=== PATIENT | female | born 1995 | race Caucasian/White ===

== ENCOUNTER 2016-06-28 18:50 | Inpatient (IN) | payer MEDICAID ==
[~2016-06-28] VITALS: Ht 152.4 cm; Wt 90.8 kg
--- NOTE | 2016-06-28 19:28 | NUR ---
PT CAME TO THE ED TODAY WITH CO MID ABD PAIN SINCE HAVING HER BABY IN LATE JANUARY. PT STATES PAIN COMES AND GOES AND CHANGES FROM SHARP TO BURNING SENSATION. PT STATES SHE WENT TO HER PMD 6 WKS AFTER DELIVERING THE BABY AND THE DR TOLD HER IT WAS GAS. PT DENIES ANY URINARY SYMPTOMS. PT STATES SHE HAS BEEN HAVING HER NORMAL BM. PT DENEIS ANY N/V/D. PT DENIES ANY CP. PT AWAKE AND ALERT. BREATHING EVEN AND UNLABORED. PT RECLINING IN [place] WITH NAD. WILL CONTINUE TOMONITOR.
--- NOTE | 2016-06-28 19:58 | NUR ---
DR HORVATH AT BEDSIDE FOR MSE
[2016-06-28 20:08] LABS: microscopic required? NO
[2016-06-28 20:19] LABS: UA SPECIFIC GRAVITY >=1.030 (1.005-1.035); urine erythrocyte NEGATIVE (NEGATIVE)
[2016-06-28 20:29] LABS: BASOPHIL % 0.3 % (0-2); PLATELET COUNT 303 x10^3mcL (130-400)
[2016-06-28 20:30] LABS: RED CELL DISTRIBUTION WIDTH 15.6 % (11.5-14.5)
[2016-06-28 20:38] LABS: CALCIUM 9.1 mg/dL (8.5-10.1); CARBON DIOXIDE 25.6 mmol/L (21-32); CHLORIDE SERUM 105 mmol/L (98-107); CREATININE SERUM 0.7 mg/dL (0.6-1.0); GFR1 > 60 mL/min; GLUCOSE SERUM 138 mg/dL (74-106); POTASSIUM SERUM 3.6 mmol/L (3.5-5.1); SODIUM SERUM 139 mmol/L (136-145)
[2016-06-28 20:44] LABS: ALBUMIN 3.9 g/dL (3.4-5.0); ALKALINE PHOSPHATASE 179 U/L (46-116); ALT/SGPT 164 U/L (14-59); AST/SGOT 134 U/L (15-37); BILIRUBIN TOTAL 0.46 mg/dL (0.20-1.00); TOTAL PROTEIN, SERUM 7.9 g/dL (6.4-8.2)
[2016-06-28 21:04] LABS: LIPASE 30774 IU/L (73-393)
--- NOTE | 2016-06-28 22:41 | NUR ---
REPORT GIVEN TO ROMERO FOR FURTHER CARE OF PT.
--- NOTE | 2016-06-28 22:50 | NUR ---
RECEIVED PT FROM ED [facility]IA [facility]. CAME IN DUE TO INTERMITTENT EPIGASTRIC PAIN SINCE FEBRUARY AFTER SHE GAVE . AAOX4. DENIES HEADACHE/DIZZINESS. NO SOB NOTED. DENIES CHEST PAIN/PRESSURE, NSR ON THE MONITOR. DENIES NAUSEA AND VOMITING. STATED THAT SHE HAS 1/10 EPIGASTRIC PAIN DESCRIBED STABBING AND BURNING. IV SITE PATENT AND INTACT. SIDE RAILS UPX2. CALL LIGHT ON REACH. WILL CONT TO MONITOR
[2016-06-28 23:01] VITALS: BP 131/77
[2016-06-28 23:04] VITALS: Ht 152.4 cm; Wt 90.8 kg
[2016-06-28 23:10] LABS: T3 TOTAL 1.15 ng/mL
[2016-06-28 23:12] LABS: CHOLESTEROL/HDL RATIO 3.3; MAGNESIUM 2.2 mg/dL (1.8-2.4); PHOSPHOROUS 3.8 mg/dL (2.5-4.9)
[2016-06-28 23:13] LABS: FREE T4 1.36 ng/dL (0.76-1.46); FREE THYROXINE INDEX 3.2 ug/dL (1.4-4.5); T4(THYROXINE) 8.1 ug/dL (4.7-13.3)
[2016-06-28 23:30] LABS: AMPHETAMINE QUAL UR NONE DETECTED (NEG <=1000)
[2016-06-29] VITALS (7 sets, daily range): BP systolic 100–124; BP diastolic 59–77
--- NOTE | 2016-06-29 00:45 | NUR ---
PT AWAKE, NO S/S OF PAIN AND SOB NOTED. IV SITE PATENT AND INTACT. WILL CONT TO MONITOR
--- NOTE | 2016-06-29 02:58 | NUR ---
DR. SANTILLAN AT BEDSIDE
--- NOTE | 2016-06-29 05:58 | NUR ---
PT HAS HER EYES CLOSED, EASILY AROUSABLE TO VERBAL STIMULI. NO SOB/PAIN NOTED. IV SITE IS PATENT AND INTACT. NEEDS ARE ATTENDED. CALL LIGHT ON REACH. WILL ENDORSE CARE TO INCOMING SHIFT
[2016-06-29 06:34] LABS: BASOPHIL % 0.5 % (0-2); PLATELET COUNT 309 x10^3mcL (130-400); RED BLOOD CELLS 4.44 M/mm3 (4.10-5.10)
[2016-06-29 06:47] LABS: IRON 37 ug/dL (50-170); TOTAL IRON BINDING CAPACITY 308 ug/dL (250-450)
[2016-06-29 06:50] LABS: CARBON DIOXIDE 21.9 mmol/L (21-32); CHLORIDE SERUM 109 mmol/L (98-107); CREATININE SERUM 0.6 mg/dL (0.6-1.0); GFR1 > 60 mL/min; GLUCOSE SERUM 102 mg/dL (74-106); MAGNESIUM 2.3 mg/dL (1.8-2.4); PHOSPHOROUS 3.2 mg/dL (2.5-4.9); SODIUM SERUM 142 mmol/L (136-145)
[2016-06-29 07:27] LABS: RED CELL DISTRIBUTION WIDTH 15.7 % (11.5-14.5)
--- NOTE | 2016-06-29 08:14 | NUR ---
AT BEDSIDE DISCUSSING CARE OF PLANE.
--- NOTE | 2016-06-29 18:02 | NUR ---
NO SIGNIFICANT CHANGE DURING SHIFT. PT DENIES ABD PAIN, N/V AT THIS TIME. PT TOLERATING FULL LIQUID DIET WELL AT THIS TIME. NS INFUSING AT 50 ML/HR TO RHAND. WILL ENDORSE ALL CARE TO ONCOMING RN. IV SITE WNL. ALL NEEDS ARE MET AND ATTENDED TO. ALL MEDS ARE ADMINISTERED PER EMAR. BED AT LOW AND CALL LIGHT WIHIN REACH.
--- NOTE | 2016-06-29 19:50 | NUR ---
RECEIVED PT IN BED AAOX4 , PT DENY ABD PAIN AT THE MOMENT . BS ACTIVE X4 , ABD SOFT NON- TENDER TO TOUCH , LUNG SOUNDS CTA , ON TELE 25 NSR HR 78. PIV INTACT INFUSING WELL , WILL CON'T TO MONITOR AND ASSIST PT WITH CARE.
--- NOTE | 2016-06-29 19:52 | NUR ---
PATIENT'S PLAN OF CARE WAS DISCUSSED AND REVIEWED WITH RESIDENTIAL SALES REPRESENTATIVE: ANJANA PRUETT
--- NOTE | 2016-06-30 01:17 | NUR ---
PT'S IN BED WITH EYES CLOSED, TELE NSR ,PIV INTACT INFUSING WELL .
[2016-06-30 05:53] VITALS: BP 115/74
--- NOTE | 2016-06-30 06:05 | NUR ---
I HAVE REVIEWED THE DATA COLLECTION BY [employer]NE[employer] (NAME): ANJANA PRUETT ENTERED ON (DATE/TIME): 06/30/16 I CONCUR WITH THE DATA AND ANY EXCEPTIONS OR COMMENTS ARE LISTED BELOW:
--- NOTE | 2016-06-30 06:41 | NUR ---
DC'D TELE ORDERED , PT'S IN BED NO ACUTE DISTRESS NOTED , PT DENY PAIN , PIV INTACT INFUSING WELL .
[2016-06-30 06:46] LABS: BASOPHIL % 0.6 % (0-2); PLATELET COUNT 297 x10^3mcL (130-400)
[2016-06-30 07:01] LABS: CARBON DIOXIDE 23.7 mmol/L (21-32); CHLORIDE SERUM 106 mmol/L (98-107); CREATININE SERUM 0.7 mg/dL (0.6-1.0); GFR1 > 60 mL/min; GLUCOSE SERUM 85 mg/dL (74-106); PHOSPHOROUS 3.9 mg/dL (2.5-4.9); POTASSIUM SERUM 4.4 mmol/L (3.5-5.1); SODIUM SERUM 141 mmol/L (136-145)
--- NOTE | 2016-06-30 07:05 | NUR ---
RECIEVED REPORT FROM ANJANA BOATENG AT BEDSIDE. PT IS AAOX4 ABLE TO FOLLOW VERBAL COMMANDS. NO SIGNS OF DISTRESS OR SOB NOTED. PT DENIES ANY ABD PAIN, N/V AT THIS TIME. NS INFUSING AT 50 ML/HR TO RHAND. IV SITE WNL. MOTHER AT BEDSIDE. BED AT LOW AND CALL LIGHT WITHIN REACH.
[2016-06-30 07:16] LABS: RED CELL DISTRIBUTION WIDTH 15.8 % (11.5-14.5)
[2016-06-30] MEDS ORDERED: VITC PO (09:11)
[2016-06-30] MEDS ORDERED: FER300 PO (09:11)
[2016-06-30] MEDS ORDERED: COL100 PO (09:11)
[2016-06-30] MEDS ORDERED: NORCO1 TA2 PO (09:12)
[2016-06-30 09:45] VITALS: BP 103/59
[2016-06-30 10:14] VITALS: BP 103/59
[2016-06-30 10:35] VITALS: BP 103/59
--- NOTE | 2016-06-30 11:15 | NUR ---
DISCHARGE INSTRUCTION IS GIVEN TO PT. PT IS AWARE OF NEW RX MEDS. PT HAS ALL PERSONAL BELONGINGS. PT IS AOX4 ABLE TO FOLLOW VERBAL COMMANDS. NO SIGNS ACUTE DISTRESS OR SOB. PT DENIES ABD PAIN. IV IS REMOVED ROM R AHND. NO SIGNS OF BLEEDING AT IV SITE. PT IS D/C BACK TO HOME. FAMILY WITH PT. PT IS WHEEL CHAIRED TO DISCHARGE OFFICE.
[2016-07-02 08:22] LABS: TRANSFERRIN 261 mg/dL (200-370)
== END 2016-06-30 11:07 | disposition home or self-care (01) | DRG 282 ==
LOC: ED 18:50 → DU 22:16 → MU 06-30 06:47
PROVIDERS: Emergency Medicine; ADMIT Family Medicine
DX: K85.90 Acute pancreatitis without necrosis or infection, unspecified (principal); K76.0 Fatty (change of) liver, not elsewhere classified; E66.01 Morbid (severe) obesity due to excess calories; D50.9 Iron deficiency anemia, unspecified; E78.5 Hyperlipidemia, unspecified; D72.829 Elevated white blood cell count, unspecified; R73.03 Prediabetes; Z68.41 Body mass index [BMI] 40.0-44.9, adult
CPT/HCPCS: 80307; 82962; 83880; 84439; G0480; J7030

== ENCOUNTER 2018-04-04 12:01 | Emergency (ER) | payer MEDICAID ==
[~2018-04-04] VITALS: Ht 154.9 cm; Wt 97.5 kg
[~2018-04-04 12:01] MED LIST: COL100 PO; FER300 PO; NORCO1 TA2 PO; VITC PO
[2018-04-04 12:19] VITALS: BP 136/71; Ht 154.9 cm; Wt 97.5 kg
== END 2018-04-04 14:51 | disposition home or self-care (01) ==
LOC: ED 12:01
DX: J40 Bronchitis, not specified as acute or chronic (principal)
CPT/HCPCS: Q0092